=== PATIENT | male | born 1995 | race Hispanic/Latino ===

== ENCOUNTER 2018-06-02 12:18 | Emergency (ER) | payer BC ==
--- NOTE | 2018-06-02 14:00 | CT ---
Exam: CHEST CT WITHOUT CONTRAST: HISTORY: Pneumothorax. COMPARISON: None FINDINGS: Limited evaluation mediastinum due to the lack of IV contrast. No mediastinal mass, lymphadenopathy or hematoma. Heart size is within normal limits. No significant pericardial fluid. The visualized aorta has a normal caliber. Visualized upper solid abdominal viscera is unremarkable. Trachea and central bronchi are patent. There is adequate aeration of the right lung. There is a mode rate left-sided pneumothorax with partial collapse of the left lower lobe. Consolidation is felt to be due to atelectasis. Additional atelectasis in the lingula is noted. There is slight rightward disp lacement of the cardiomediastinal silhouette. The possibility of an early tension pneumothorax cannot be excluded. No lytic or blastic lesions in the osseous structures. No evidence of a rib fracture. IMPRESSION: Moderate left-sided pneumothorax. There is evidence for slight rightward deviation of the cardiomedia stinal silhouette suggesting a component of tension pneumothorax. Results study discussed with Dr. Gordon 06/02/2018 at 1:59 PM Code CR Transcribed Date/Time: 06/02/2018 2:23 PM
[2018-06-02] MEDS ORDERED: Lidocaine 1% w/Epinephrine 1:100K 20 ML VIAL ONE (14:16)
[2018-06-02] MEDS ORDERED: Ketorolac Tromethamine 30 MG/ML VIAL ONE (15:04)
--- NOTE | 2018-06-02 15:14 | RAD ---
CHEST 1 VIEW: HISTORY: Chest pain post tube insertion. COMPARISON: CT of the chest of the same day. FINDINGS: Relative to the CT examination, the left-sided pneumothorax is very similar. The apex of the pneumot horax in the semiupright position is between the posterior left 3rd and 4th rib interspaces, although there is a large lateral component to it. No midline shift. The right lung is without abnormality. IMPRESSION: Similar size of the left-sided pneumothorax. Consider further advancing the thoracostomy tube. POS: [facility]
--- NOTE | 2018-06-03 00:56 | CON ---
DATE OF CONSULTATION: HISTORY OF PRESENT ILLNESS: Mr. Sellers is a gentleman, who yesterday went for a run. His allergies have been bothered him. He had a coughing spell and then started feeling a full, uncomfortable feeling in his chest, fed up with this all night and then drove over here where his parents live. He is seen in the emergency room, was identified as having a pneumothorax. He subsequently has had a small 8-Amharic catheter placed with reinflation of his lung. I was consulted to assist in his management. PAST MEDICAL HISTORY: Remarkable for no medical problems. SOCIAL HISTORY: He rarely drinks. Does not use drugs. Does not smoke. ALLERGIES: HE HAS NO DRUG ALLERGIES. FAMILY HISTORY: There is no family history of lung disease in early age. REVIEW OF SYSTEMS: Otherwise, normal now. He denies any significant pain in his left chest. PHYSICAL EXAMINATION: VITAL SIGNS: Blood pressures were unremarkable, heart rate was in 80s, respiratory rate was in the teens. GENERAL: Very healthy-appearing young man, in no distress. HEENT: Pupils are equal. Sclerae are anicteric. NECK: Supple. LUNGS: Remarkable for equal breath sounds now. HEART: Regular rhythm. S1 and S2 are normal. ABDOMEN: Soft and nontender. EXTREMITIES: Without clubbing, cyanosis, or edema. It looks like the Heimlich valve is still having excursion with respiratory effort, so I would not remove his chest tube at this point. DISCUSSION: Spontaneous pneumothorax. I counseled him against skydiving and scuba diving. I think he is medically stable since the family does not live too far from the hospital to go home. I will see him in the office in the morning and do a chest x-ray. If it looks like the Heimlich valve is no longer relieving air pressure and his lungs fully inflated, we will turn off the stopcock to the Heimlich valve and then repeat a chest x-ray at noon and remove the tube if it is stable. I would not recommend thoracoscopy or pleurodesis at this point, but if he has another event, as I have explained to his father, that would be the next plan. Hopefully, he will not have an another event. I have given his father my cellphone number and my office number, and I plan on seeing him in the morning with chest x-ray. TIME SPENT: 70-minute consult, 50% of time spent on the unit, coordinating care, meeting with family. Job ID: [id number]
--- NOTE | 2018-06-12 23:33 | EKG ---
Test Reason : Blood Pressure : / mmHG Vent. Rate : 089 BPM Atrial Rate : 089 BPM P-R Int : 152 ms QRS Dur : 096 ms QT Int : 354 ms P-R-T Axes : 067 080 042 degrees QTc Int : 430 ms Normal sinus rhythm Possible Left atrial enlargement Borderline ECG Confirmed by MELANY SHAFFER ([id number]), design editor ALDO NG ([id number] on 06/12/2018 11:32:58 PM Referred By: Confirmed By:MELANY SHAFFER
== END 2018-06-02 16:24 | disposition home or self-care (01) ==
LOC: ERS 12:18 → UNDOADMIN 15:00 → ERHOLD 15:00 → UNDODISIN 16:43
DX: J93.83 Other pneumothorax (principal); F90.9 Attention-deficit hyperactivity disorder, unspecified type; Z79.899 Other long term (current) drug therapy
CPT/HCPCS: 32551; 71045; 71250; 93005; 94760; 96361; 96374; J1885; J2001

== ENCOUNTER 2018-06-03 08:20 | Outpatient (CLI) | payer BC ==
--- NOTE | 2018-06-03 09:00 | RAD ---
EXAM: Two views chest PROVIDED CLINICAL HISTORY: Dyspnea COMPARISON: 06/02/2018 FINDINGS: Cardiac silhouette and pulmonary vasculature are within normal limits. A small caliber left-sided tho racostomy tube remains in place overlying the lateral left chest. Previously seen left-sided pneumothorax is again seen. The pneumothorax has diminished in size but remains greater than 15% of t he volume of the left hemithorax. A tiny left pleural effusion is present. The right lung is clear, no pneumothorax is seen on the right. The osseous structures have a normal a ppearance.No other interval change. IMPRESSION: 1. Mild interval decrease in left-sided pneumothorax; the size of the pneumothorax does appear greate r than 15% of the volume of the left hemithorax. Previously seen left-sided thoracostomy tube is unchanged in position. 2. Small left pleural effusion.
== END 2018-06-03 08:21 | disposition home or self-care (01) ==
LOC: RAD 08:20
PROVIDERS: ATTEND Internal Medicine Critical Care Medicine
DX: R06.00 Dyspnea, unspecified (principal); J93.9 Pneumothorax, unspecified; J90 Pleural effusion, not elsewhere classified
CPT/HCPCS: 71046

== ENCOUNTER 2018-06-04 08:16 | Outpatient (CLI) | payer BC ==
--- NOTE | 2018-06-04 08:38 | RAD ---
Chest 2 views HISTORY: Pneumothorax. Follow-up. COMPARISON: 06/03/2018. FINDINGS: Cardiac silhouette and pulmonary vasculature are unremarkable. The apical pleura of the lef t lung is now 1.9 cm from the chest wall apex (previously 3.2 cm). Small caliber left lateral thoracostomy tube remains in place. Right lung remains well-inflated. No significant pleural fluid apparent. IMPRESSION: Continued interval decrease in size of now small left apical pneumothorax.
== END 2018-06-04 08:17 | disposition home or self-care (01) ==
LOC: RAD 08:16
PROVIDERS: ATTEND Internal Medicine Critical Care Medicine
DX: J93.9 Pneumothorax, unspecified (principal)
CPT/HCPCS: 71046

== ENCOUNTER 2018-06-07 08:56 | Outpatient (CLI) | payer BC ==
--- NOTE | 2018-06-07 11:01 | RAD ---
PA AND LATERAL CHEST: Date: 06/07/18 HISTORY: Dyspnea and pneumothorax. COMPARISON: 06/04/18. FINDINGS: Heart size and mediastinum are within normal limits. Lungs are clear of infiltrative process. Left-si ded Heimlich valve tube is present. I do not visualize a definite pneumothorax on this exam. IMPRESSION: The left apical pneumothorax appears to have resolved. POS: [facility]
== END 2018-06-07 08:57 | disposition home or self-care (01) ==
LOC: RAD 08:56
PROVIDERS: ATTEND Internal Medicine Critical Care Medicine
DX: R06.00 Dyspnea, unspecified (principal); J93.9 Pneumothorax, unspecified
CPT/HCPCS: 71046